=== PATIENT | female | born 1995 | race Caucasian/White ===

== ENCOUNTER 2022-05-20 00:31 | Inpatient (IN) | payer BC, OTHER ==
[2022-05-20] MEDS ORDERED: hydrALAZINE 20 MG/ML VIAL SLOW IVP PRN (00:50)
[2022-05-20] MEDS ORDERED: Lactated Ringer's 1,000 ML IV SCH (01:00)
[2022-05-20] MEDS ORDERED: Butorphanol Tartrate 1 MG/ML VIAL SLOW IVP SCH (01:00)
[2022-05-20 01:22] LABS: Bilirubin Neg (Negative); Blood, Urine 250 (Negative); Clarity Clear (Clear); Glucose, Urine (Dipstick) Normal (Negative); Ketone, Urine Negative (Negative); Leukocyte 25 (Negative); Nitrite Negative (Negative); Protein, Urine (Dipstick) Negative (Neg-Trace); Urobilinogen Normal mg/dL (Less than 2); pH, Urine 6.5 (5.0-9.0)
[2022-05-20 01:25] VITALS: BMI 27.3
[2022-05-20] MEDS: Promethazine HCl 25 MG/ML VIAL IM PRN ×2 (01:35→07:35)
[2022-05-20 01:38] LABS: #Eosinphils 0.2 10x3/uL (0.0-0.5); #Monocytes 0.6 10x3/uL (0.0-1.1); #Neutrophils 11.1 10x3/uL (1.5-8.4); %Basophils 0.3 % (0.0-2.0); %Eosinophils 1.2 % (0.0-6.0); %Lymphocytes 17.2 % (18.0-47.0); %Monocytes 4.1 % (0.0-10.0); %Neutrophils 76.2 % (40.0-75.0); Hemoglobin 12.6 g/dL (12.0-15.5); Mean Corpuscular HGB CONC 34.6 g/dL (32.0-36.0); Mean Corpuscular Hemoglobin 29.6 pg (27.0-33.0); Mean Corpuscular Volume 85.4 fl (81.6-98.3); Mean Platelet Volume 11.7 fl (7.4-10.4); Platelet Count 186 10x3/uL (150-450); RBC Distribution Width 12.4 % (11.5-14.5); Red Blood Cell (RBC) Count 4.26 10x6/uL (3.90-5.03); White Blood Cell (WBC) Count 14.6 10x3/uL (3.5-10.5)
[2022-05-20 01:39] LABS: Urine Culture Reflex No No
[2022-05-20 01:42] LABS: ALT (SGPT) 18 U/L (8-55); AST (SGOT) 17 U/L (5-34); Albumin 3.7 g/dL (3.5-5.0); Alkaline Phosphatase 63 U/L (40-110); Anion Gap 14 mmol/L (10-20); BUN (Urea Nitrogen) 9 mg/dL (7.0-18.7); Bilirubin, Total 0.2 mg/dL (0.2-1.2); Calc. Creatinine Clearance 150 mL/min (70-130); Calcium 9.2 mg/dL (7.8-10.44); Carbon Dioxide 22 mmol/L (22-29); Chloride 107 mmol/L (98-107); Estimated GFR 117; Globulin 2.8 g/dL (2.4-3.5); Glucose 87 mg/dL (70-105); Potassium 3.5 mmol/L (3.5-5.1); Protein, Total 6.5 g/dL (6.0-8.3); Sodium 139 mmol/L (136-145)
[2022-05-20] MEDS ORDERED: Butorphanol Tartrate 1 MG/ML VIAL SLOW IVP PRN (01:49)
[2022-05-20] MEDS ORDERED: HYDROcodone/Acetaminophen 5/325 mg Tablet PO PRN (01:51)
[2022-05-20 01:54] LABS: Bacteria/HPF Rare-Few HPF (None Seen); Squamous Epithelial 0-3 HPF (0-3)
[2022-05-20] MEDS ORDERED: Butorphanol Tartrate 1 MG/ML VIAL ONE (02:13)
[2022-05-20] MEDS: Butorphanol Tartrate 1 MG/ML VIAL SLOW IVP PRN ×2 (02:15→04:40)
[2022-05-20] MEDS ORDERED: Piperacillin/Tazobactam 3.375 GM in Sodium Chloride 0.9% 100 ML IVPB SCH (02:30)
[2022-05-20] MEDS ORDERED: Ampicillin/Sulbactam 1.5 GM in Sodium Chloride 0.9% 100 ML IVPB SCH (03:00)
[2022-05-20] MEDS ORDERED: Acetaminophen 500 MG TAB PO SCH (07:00)
[2022-05-20] MEDS ORDERED: Prenatal Vitamin 1 TAB PO SCH (09:00)
[2022-05-20] MEDS ORDERED: Aspirin Chewable 81 MG TAB PO SCH (09:00)
[2022-05-20] MEDS: Morphine 4 MG/ML VIAL SLOW IVP PRN ×3 (10:32→20:04)
[2022-05-20] MEDS: Piperacillin/Tazobactam 3.375 GM in Sodium Chloride 0.9% 100 ML IVPB SCH ×2 (10:34→18:26)
== END 2022-05-20 20:10 | disposition home or self-care (01) | DRG 832 ==
LOC: CSHLD/OP 00:31 → CSHLD 02:24
PROVIDERS: ADMIT Student in an Organized Health Care Education/Training Program; ATTEND Student in an Organized Health Care Education/Training Program
DX: O99.891 Other specified diseases and conditions complicating pregnancy (principal); N13.2 Hydronephrosis with renal and ureteral calculous obstruction; K21.9 Gastro-esophageal reflux disease without esophagitis; J45.20 Mild intermittent asthma, uncomplicated; O99.612 Diseases of the digestive system complicating pregnancy, second trimester; O99.512 Diseases of the respiratory system complicating pregnancy, second trimester; Z3A.26 26 weeks gestation of pregnancy; Z87.440 Personal history of urinary (tract) infections; Z86.16 Personal history of COVID-19; Z79.82 Long term (current) use of aspirin; Z88.8 Allergy status to other drugs, medicaments and biological substances
CPT/HCPCS: 76770; 80053; 81001; 85025; 86850; 86900; 86901; 87086; 87205; 94760; 99285; J0295; J0595; J2270; J2543; J2550; J3490

== ENCOUNTER 2022-05-29 14:32 | Day surgery (SDC) | payer BC, OTHER ==
[2022-05-29] MEDS ORDERED: hydrALAZINE 20 MG/ML VIAL SLOW IVP PRN (14:51)
[2022-05-29 15:18] VITALS: BMI 25.5
[2022-05-29 15:26] LABS: Bilirubin Neg (Negative); Blood, Urine Negative (Negative); Clarity Clear (Clear); Glucose, Urine (Dipstick) Normal (Negative); Ketone, Urine Negative (Negative); Leukocyte 25 (Negative); Nitrite Negative (Negative); Protein, Urine (Dipstick) Negative (Neg-Trace); Specific Gravity, Urine 1.005 (1.002-1.036); Urobilinogen Normal mg/dL (Less than 2)
[2022-05-29 15:30] LABS: Fetal Membranes Rupture No Membranes Rupture (No Rupture)
[2022-05-29 15:36] LABS: Bacteria/HPF Rare-Few HPF (None Seen); RBC/HPF 0-3 HPF (0-3); Squamous Epithelial 0-3 HPF (0-3)
== END 2022-05-29 16:30 | disposition home health service (06) ==
LOC: CSHLD/OP 14:32
PROVIDERS: ATTEND Student in an Organized Health Care Education/Training Program
DX: O99.891 Other specified diseases and conditions complicating pregnancy (principal); N89.8 Other specified noninflammatory disorders of vagina; O99.512 Diseases of the respiratory system complicating pregnancy, second trimester; J45.30 Mild persistent asthma, uncomplicated; O99.612 Diseases of the digestive system complicating pregnancy, second trimester; K21.9 Gastro-esophageal reflux disease without esophagitis; K59.01 Slow transit constipation; O09.292 Supervision of pregnancy with other poor reproductive or obstetric history, second trimester; O98.512 Other viral diseases complicating pregnancy, second trimester; U07.1 COVID-19; Z3A.27 27 weeks gestation of pregnancy; Z86.19 Personal history of other infectious and parasitic diseases; Z79.82 Long term (current) use of aspirin; Z88.1 Allergy status to other antibiotic agents
CPT/HCPCS: 76819; 81001; 84112; 87086; 99283

== ENCOUNTER 2022-08-01 22:28 | Inpatient (IN) | payer BC ==
[2022-08-01 22:53] VITALS: BMI 30.1
[2022-08-01] MEDS ORDERED: Lidocaine 1% (PF) 30 ML VIAL SC PRN (23:06)
[2022-08-01] MEDS ORDERED: Ondansetron PF 4 MG/2 ML Vial IVP PRN (23:06)
[2022-08-01] MEDS ORDERED: hydrALAZINE 20 MG/ML VIAL SLOW IVP PRN (23:06)
[2022-08-01] MEDS ORDERED: Acetaminophen 500 MG TAB PO PRN (23:06)
[2022-08-01] MEDS ORDERED: Promethazine HCl 25 MG/ML VIAL IM PRN (23:06)
[2022-08-01] MEDS ORDERED: Penicillin G Potassium 5 MILL.UNITS VIAL ONE (23:07)
[2022-08-01] MEDS ORDERED: Diphenoxylate HCl/Atropine Tablet PO PRN (23:09)
[2022-08-01] MEDS ORDERED: Methylergonovine 0.2 MG/ML VIAL IM PRN (23:09)
[2022-08-01] MEDS ORDERED: Misoprostol 200 MCG TAB PR PRN (23:09)
[2022-08-01] MEDS ORDERED: Ibuprofen 800 MG TAB PO PRN (23:09)
[2022-08-01] MEDS: Lactated Ringer's 1,000 ML IV SCH (23:10)
[2022-08-01] MEDS ORDERED: Penicillin G Potassium 5 MILL.UNITS in Sodium Chloride 0.9% 100 ML IVPB SCH (23:15)
[2022-08-01 23:35] LABS: Mean Corpuscular HGB CONC 34.4 g/dL (32.0-36.0); Mean Corpuscular Hemoglobin 29.1 pg (27.0-33.0); Mean Corpuscular Volume 84.7 fl (81.6-98.3); Mean Platelet Volume 12.5 fl (7.4-10.4); Platelet Count 174 10x3/uL (150-450); RBC Distribution Width 12.4 % (11.5-14.5); Red Blood Cell (RBC) Count 4.12 10x6/uL (3.90-5.03); White Blood Cell (WBC) Count 14.4 10x3/uL (3.5-10.5)
[2022-08-01] MEDS ORDERED: NS w/ Oxytocin 30 units 500 ML IV SCH ×2 (23:59)
[2022-08-02 00:06] LABS: HBSAg Index 0.22 S/CO (0-0.99); Hep B Surf Ag Non-Reactive S/CO (NonReactive); Syphilis Antibody Nonreactive (Nonreactive); Syphilis Antibody Index 0.03 S/CO (<1.00 Non-Reactive)
[2022-08-02 00:13] LABS: SARS-CoV-2 NAA Rapid Test Not Detected (NotDetected)
[2022-08-02] MEDS: Penicillin G 2.5 MILL.units 2.5 MILL.UNITS in Premix Bag 1 BAG IVPB SCH ×3 (03:01→10:31)
[2022-08-02] MEDS ORDERED: Fentanyl 2 mcg/Bup 0.1% Cadd 100 ML ONE (03:18)
[2022-08-02] MEDS: Lactated Ringer's 1,000 ML IV SCH (04:20)
[2022-08-02] MEDS ORDERED: diphenhydrAMINE 50 MG/ML VIAL ONE (08:07)
[2022-08-02] MEDS ORDERED: Ondansetron PF 4 MG/2 ML Vial IVP PRN ×2 (08:12→17:20)
[2022-08-02] MEDS ORDERED: ePHEDrine Sulfate 50 MG/10 ML VIAL SLOW IVP PRN (08:12)
[2022-08-02] MEDS ORDERED: Moisturizing Cream (Eucerin) 113 GM JAR TOP PRN (08:12)
[2022-08-02] MEDS ORDERED: Naloxone HCl 0.4 mg/ml Vial IVP PRN ×2 (08:12)
[2022-08-02] MEDS ORDERED: Promethazine HCl 25 MG/ML VIAL IM PRN ×2 (08:12→17:20)
[2022-08-02] MEDS ORDERED: diphenhydrAMINE 50 MG/ML VIAL IVP PRN (08:12)
[2022-08-02] MEDS ORDERED: Fentanyl 2 mcg/Bupivacaine 0.1% Cassette 100 ML EPIDURAL SCH (08:15)
[2022-08-02] MEDS ORDERED: Communication Order-Pharmacy FS SCH (08:15)
[2022-08-02] MEDS ORDERED: Lactated Ringer's 500 ML IV PRN (08:17)
[2022-08-02] MEDS ORDERED: Methylergonovine 0.2 MG/ML VIAL IM PRN (17:20)
[2022-08-02] MEDS ORDERED: Benzocaine-Menthol 82.5 ML CAN TOP PRN (17:20)
[2022-08-02] MEDS ORDERED: hydrALAZINE 20 MG/ML VIAL SLOW IVP PRN (17:20)
[2022-08-02] MEDS ORDERED: Bisacodyl 10 MG SUPP PR PRN (17:20)
[2022-08-02] MEDS ORDERED: diphenhydrAMINE 25 MG CAP PO PRN (17:20)
[2022-08-02] MEDS ORDERED: Boostrix 0.5 ML (Tdap) VIAL (>/=7 yrs of age) IM ONE (17:20)
[2022-08-02] MEDS ORDERED: Ferrous Sulfate 325 MG TAB PO SCH (17:45)
[2022-08-02] MEDS: Milk Of Magnesia 30 ML UDCUP PO PRN (19:53)
[2022-08-02] MEDS: Ibuprofen 800 MG TAB PO SCH (21:38)
[2022-08-02] MEDS: Docusate 100 MG CAP PO SCH (21:39)
[2022-08-03] MEDS: Prenatal Vitamin 1 TAB PO SCH (10:21)
[2022-08-03] MEDS: Docusate 100 MG CAP PO SCH ×2 (10:21→21:38)
[2022-08-03] MEDS: Acetaminophen 325 MG TAB PO PRN ×2 (10:21→21:37)
[2022-08-03] MEDS: Milk Of Magnesia 30 ML UDCUP PO PRN (15:07)
[2022-08-03] MEDS: Ibuprofen 800 MG TAB PO SCH ×3 (15:07→21:37)
[2022-08-03] MEDS ORDERED: Lanolin Ointment 7 GM TUBE TOP PRN (15:23)
[2022-08-03] MEDS: Ferrous Sulfate 325 MG TAB PO SCH (21:17)
[2022-08-03] MEDS: Lactated Ringer's 1,000 ML IV SCH (21:20)
[2022-08-03] MEDS: Penicillin G 2.5 MILL.units 2.5 MILL.UNITS in Premix Bag 1 BAG IVPB SCH (21:20)
[2022-08-04] MEDS: Ibuprofen 800 MG TAB PO SCH (07:03)
[2022-08-04] MEDS: Ferrous Sulfate 325 MG TAB PO SCH (07:09)
[2022-08-04 07:47] VITALS: BP 131/74; TEMP 97.9
[2022-08-04 09:47] LABS: ALT (SGPT) 25 U/L (8-55); AST (SGOT) 22 U/L (5-34); Alkaline Phosphatase 112 U/L (40-110); Anion Gap 14 mmol/L (10-20); BUN (Urea Nitrogen) 10 mg/dL (7.0-18.7); Bilirubin, Total 0.3 mg/dL (0.2-1.2); Calc. Creatinine Clearance 172 mL/min (70-130); Calcium 8.6 mg/dL (7.8-10.44); Carbon Dioxide 21 mmol/L (22-29); Chloride 109 mmol/L (98-107); Estimated GFR 121; Globulin 2.6 g/dL (2.4-3.5); Glucose 108 mg/dL (70-105); Potassium 3.7 mmol/L (3.5-5.1); Protein, Total 5.6 g/dL (6.0-8.3); Sodium 140 mmol/L (136-145)
[2022-08-04] MEDS: Prenatal Vitamin 1 TAB PO SCH (10:28)
[2022-08-04] MEDS: Docusate 100 MG CAP PO SCH (10:28)
== END 2022-08-04 11:14 | disposition home or self-care (01) | DRG 806 ==
LOC: CSHLD/OP 22:28 → CSHLD 22:47 → CSHPP 08-03 21:10
PROVIDERS: ADMIT Student in an Organized Health Care Education/Training Program; ATTEND Student in an Organized Health Care Education/Training Program
PROC: 10E0XZZ Delivery of Products of Conception, External Approach (ICD-10-PCS; principal; 2022-08-02)
PROC: 0KQM0ZZ Repair Perineum Muscle, Open Approach (ICD-10-PCS; 2022-08-02)
DX: O42.02 Full-term premature rupture of membranes, onset of labor within 24 hours of rupture (principal); N13.30 Unspecified hydronephrosis; Z37.0 Single live birth; O70.1 Second degree perineal laceration during delivery; Z3A.37 37 weeks gestation of pregnancy; Z20.822 Contact with and (suspected) exposure to COVID-19; Z88.8 Allergy status to other drugs, medicaments and biological substances; O99.52 Diseases of the respiratory system complicating childbirth; J45.40 Moderate persistent asthma, uncomplicated; Z86.16 Personal history of COVID-19; O36.63X0 Maternal care for excessive fetal growth, third trimester, not applicable or unspecified; O99.824 Streptococcus B carrier state complicating childbirth; Z79.82 Long term (current) use of aspirin; Z79.899 Other long term (current) drug therapy; O69.81X0 Labor and delivery complicated by cord around neck, without compression, not applicable or unspecified; O99.893 Other specified diseases and conditions complicating puerperium; R16.0 Hepatomegaly, not elsewhere classified; O99.892 Other specified diseases and conditions complicating childbirth
CPT/HCPCS: 36415; 51702; 74176; 80053; 85027; 86780; 86850; 86900; 86901; 87340; 99285; J1200; J2540; J3490; J7120; U0002

== ENCOUNTER 2024-03-21 16:00 | Day surgery (SDC) | payer BC ==
[2024-03-21] MEDS ORDERED: hydrALAZINE 20 MG/ML VIAL SLOW IVP PRN (16:08)
[2024-03-21] MEDS ORDERED: Lactated Ringer's 500 ML IV SCH (16:15)
== END 2024-03-21 17:32 | disposition home or self-care (01) ==
LOC: CSHLD/OP 16:00
PROVIDERS: ATTEND Student in an Organized Health Care Education/Training Program
DX: O36.8330 Maternal care for abnormalities of the fetal heart rate or rhythm, third trimester, not applicable or unspecified (principal); Z3A.37 37 weeks gestation of pregnancy; Z79.899 Other long term (current) drug therapy
CPT/HCPCS: 76819

== ENCOUNTER 2024-04-04 22:11 | Inpatient (IN) | payer BC ==
[~2024-04-04 22:11] MED LIST: Acetaminophen 500 MG TAB PO PRN; Carboprost 250 MCG/ML AMP IM PRN; Diphenoxylate HCl/Atropine Tablet PO PRN; Ibuprofen 800 MG TAB PO PRN; Lidocaine 1% (PF) 30 ML VIAL SC PRN; Methylergonovine 0.2 MG/ML VIAL IM PRN; Misoprostol 200 MCG TAB PR PRN; Ondansetron PF 4 MG/2 ML Vial IVP PRN; Promethazine HCl 25 MG/ML VIAL IM PRN; Tranexamic Acid 1,000 MG/10 ML VIAL IVP PRN; hydrALAZINE 20 MG/ML VIAL SLOW IVP PRN
[2024-04-04 23:14] VITALS: BMI 30.4
[2024-04-04 23:22] LABS: Hematocrit 34.5 % (34.9-44.5); Mean Corpuscular HGB CONC 34.8 g/dL (32.0-36.0); Mean Corpuscular Hemoglobin 29.6 pg (27.0-33.0); Mean Corpuscular Volume 85.2 fl (81.6-98.3); Mean Platelet Volume 12.8 fl (7.4-10.4); Platelet Count 149 10x3/uL (150-450); RBC Distribution Width 12.7 % (11.5-14.5); Red Blood Cell (RBC) Count 4.05 10x6/uL (3.90-5.03); White Blood Cell (WBC) Count 11.4 10x3/uL (3.5-10.5)
[2024-04-04] MEDS: Oxytocin 30 units/NS 500 ML 500 ML IV SCH (23:34)
[2024-04-04 23:48] LABS: HBsAg Index 0.17 S/CO (0-0.99); Hep B Surf Ag - L&D Non-Reactive S/CO (NonReactive)
[2024-04-04 23:49] LABS: Syphilis Antibody Nonreactive (Nonreactive); Syphilis Antibody Index 0.08 S/CO (<1.00 Non-Reactive)
[2024-04-05] MEDS ORDERED: Misoprostol 100 MCG TAB VAG SCH
[2024-04-05] MEDS: diphenhydrAMINE 25 MG CAP PO PRN (00:08)
[2024-04-05] MEDS: fentaNYL/Ropivacaine Epidural 100 ML ONE (03:59)
[2024-04-05] MEDS ORDERED: diphenhydrAMINE 50 MG/ML VIAL IVP PRN (04:10)
[2024-04-05] MEDS ORDERED: Ondansetron PF 4 MG/2 ML Vial IVP PRN (04:10)
[2024-04-05] MEDS ORDERED: Promethazine HCl 25 MG/ML VIAL IM PRN (04:10)
[2024-04-05] MEDS ORDERED: Naloxone HCl 0.4 mg/ml Vial IVP PRN ×2 (04:10)
[2024-04-05] MEDS ORDERED: Acetaminophen 325 MG TAB PO PRN (04:10)
[2024-04-05] MEDS ORDERED: Moisturizing Cream (Eucerin) 113 GM JAR TOP PRN (04:10)
[2024-04-05] MEDS ORDERED: ePHEDrine Sulfate 50 MG/10 ML VIAL SLOW IVP PRN (04:10)
[2024-04-05] MEDS ORDERED: Lactated Ringer's 500 ML IV PRN (04:10)
[2024-04-05] MEDS ORDERED: Communication Order-Pharmacy FS SCH (04:15)
[2024-04-05] MEDS ORDERED: fentaNYL 2 mcg/Ropivacaine 0.2% Epidural 100 ML CADD EPIDURAL SCH (04:15)
[2024-04-05] MEDS ORDERED: hydrALAZINE 20 MG/ML VIAL SLOW IVP PRN (12:05)
[2024-04-05] MEDS ORDERED: Misoprostol 200 MCG TAB VAG PRN (12:05)
[2024-04-05] MEDS ORDERED: Bisacodyl 10 MG SUPP PR PRN (12:05)
[2024-04-05] MEDS ORDERED: Lanolin Ointment 7 GM TUBE TOP PRN (12:05)
[2024-04-05] MEDS ORDERED: Oxytocin 30 units/NS 500 ML 500 ML IV SCH (12:05)
[2024-04-05] MEDS ORDERED: HYDROcodone/Acetaminophen 5/325 mg Tablet PO PRN ×2 (12:05)
[2024-04-05] MEDS ORDERED: Benzocaine-Menthol 82.5 ML CAN TOP PRN (12:05)
[2024-04-05] MEDS ORDERED: diphenhydrAMINE 25 MG CAP PO PRN (12:05)
[2024-04-05] MEDS: Ibuprofen 800 MG TAB PO SCH (12:27)
[2024-04-05] MEDS: Docusate 100 MG CAP PO SCH ×2 (12:27→20:32)
[2024-04-05] MEDS: diphenhydrAMINE 50 MG/ML VIAL IVP SCH (12:28)
[2024-04-05] MEDS: Boostrix 0.5 ML (Tdap) VIAL (>/=7 yrs of age) IM ONE (13:30)
[2024-04-05] MEDS: Prenatal Vitamin 1 TAB PO SCH (14:41)
[2024-04-05] MEDS ORDERED: Witch Hazel-Glycerin 1 EACH JAR TOP PRN (17:21)
[2024-04-05] MEDS: Ferrous Sulfate 325 MG TAB PO SCH (19:02)
[2024-04-05] MEDS: diphenhydrAMINE 50 MG/ML VIAL IVP PRN (20:32)
[2024-04-06 07:33] VITALS: BP 124/76; TEMP 97.6
[2024-04-06] MEDS ORDERED: Bupivacaine 0.25% HCL 30 ML VIAL ONE (08:00)
[2024-04-06] MEDS: Milk Of Magnesia 30 ML UDCUP PO PRN (09:08)
[2024-04-06] MEDS: Prenatal Vitamin 1 TAB PO SCH (09:09)
[2024-04-06] MEDS ORDERED: Milk Of Magnesia 30 ML UDCUP PO PRN (10:13)
== END 2024-04-06 12:00 | disposition home or self-care (01) | DRG 807 ==
LOC: CSHLD 22:11 → CSHPP 04-05 11:20
PROVIDERS: ADMIT Student in an Organized Health Care Education/Training Program; ATTEND Student in an Organized Health Care Education/Training Program
PROC: 10E0XZZ Delivery of Products of Conception, External Approach (ICD-10-PCS; principal; 2024-04-05)
PROC: 3E033XZ Introduction of Vasopressor into Peripheral Vein, Percutaneous Approach (ICD-10-PCS; 2024-04-05)
PROC: 0UQMXZZ Repair Vulva, External Approach (ICD-10-PCS; 2024-04-05)
DX: O71.82 Other specified trauma to perineum and vulva (principal); Z37.0 Single live birth; O76 Abnormality in fetal heart rate and rhythm complicating labor and delivery; Z3A.39 39 weeks gestation of pregnancy
CPT/HCPCS: 85027; 86780; 86850; 86900; 86901; 87340; J0665; J1200; J2590